=== PATIENT | female | born 1965 | race Caucasian/White ===

== ENCOUNTER → 2016-06-07 | Outpatient (CLI) | payer BC ==
--- NOTE | 2016-06-07 16:12 | MAM ---
EXAM DESCRIPTION: MAMMO BREAST DIAGNOSTIC UNILATERAL Images were reviewed with R2 computer-aided detection. CLINICAL HISTORY: Clustered microcalcifications. Left breast. Eight o'clock. COMPARISON: Screening evaluation 05/07/2016 and 2013 FINDINGS: True lateral view as well as spot compression magnification views are obtained. Small group of microcalcifications are appreciated, in retrospect visible in 2014 although better demonstrated on today's exam. Shown on today's examination is a 2nd small cluster with similar morphology at 11 o'clock. The patient has additional calcifications elsewhere in the breast and on the contralateral side. Glandular parenchyma has a benign appearance. IMPRESSION: Probably benign exam. Better demonstrated calcifications in the left breast that are compatible with probably benign change. BIRAD CATEGORY: 3 PROBABLY BENIGN RECOMMENDATION: FOLLOW-UP: Six-month followup mammography left breast to document stability. Findings and recommendations were communicated to the patient by the technologist. According to the [employer], yearly mammograms are recommended starting at age 40 and continuing as long as a woman is in good health. Any breast change noted on a breast self-exam should be reported promptly to the patient's healthcare provider. Breast MRI is recommended for women with an approximately 20-25% or greater lifetime risk of breast cancer, including women with a strong family history of breast or ovarian cancer and women who have been treated for Hodgkin's disease. Electronically signed by: Rashida Leavitt 06/07/2016 16:10
== END ==
LOC: MAMMO 15:10
DX: R92.8 Other abnormal and inconclusive findings on diagnostic imaging of breast (principal); R92.1 Mammographic calcification found on diagnostic imaging of breast

== ENCOUNTER → 2016-11-29 | Outpatient (CLI) | payer BC ==
--- NOTE | 2016-11-30 10:19 | MAM ---
EXAM DESCRIPTION: Diagnostic Mammo,Left CLINICAL HISTORY: 51 yearsFemale6 M/O FU COMPARISON: Digital diagnostic left breast examination 06/07/2016. TECHNIQUE: Full-field digital left breast CC and LM images. Magnification digital LM and CC images of the anterior breast and LM digital spot magnification anterior breast. CAD was utilized. FINDINGS: Breast parenchymal density pattern is: heterogeneously dense breasts, which may obscure small masses.. Again noted are two groups of microcalcifications in the anterior third of the left breast at approximately 730 to 800 clock position. There are slightly more calcifications in the more posterior group since the prior study and these calcifications are more fine pleomorphic and amorphous compared to the more anterior grouping which are more rounded. On comparison of the magnified LM and CC images, these groups are less than 2 cm apart. IMPRESSION: BI-RADS CATEGORY: 4A - LOW SUSPICION FOR MALIGNANCY. FOLLOW-UP: SURGICAL EVALUATION IS RECOMMENDED. The findings and the follow-up plan were discussed with the patient following the examination. Written communication explaining the findings and the follow-up plan will be mailed to the patient and referring health care provider. CRITICAL COMMUNICATION: The critical value was discussed directly by phone with Dr. Krissy Mahoney, at approximately 940 hours, on November 30, 2016. Electronically signed by: Gil Pemberton MD 11/30/2016 10:17 AM CDT Workstation: [id number]
== END | disposition home or self-care (01) ==
LOC: MAMMO 15:28
DX: R92.8 Other abnormal and inconclusive findings on diagnostic imaging of breast (principal)
CPT/HCPCS: 77065; G0206

== ENCOUNTER → 2017-06-03 | Outpatient (CLI) | payer BC ==
--- NOTE | 2017-06-03 12:16 | MAM ---
EXAM DESCRIPTION: 3D Diagnostic, Bilateral: Digital Mammography CLINICAL HISTORY: 51 yearsFemaleABNORMAL SCREENING benign biopsy left breast, November 2016. No complaints. Mother with breast and ovarian cancer. Premenopausal. No HRT. COMPARISON: 2-D diagnostic digital left breast mammography 11/29/2016 and 06/07/2016. 2-D digital screening bilateral study 05/07/2016.. No prior reports available. Reports from prior examinations also reviewed. Report from prior examination also reviewed. TECHNIQUE: Bilateral CC LM MLO projection full-field images, 3-D tomosynthesis digital mammographic technique. Also bilateral synthesized CC MLO LM full-field images. CAD not utilized. FINDINGS: The breast parenchymal density pattern is: Heterogeneously dense breast tissue, which may obscure small masses. No skin thickening or nipple retraction biopsy site marker is seen in the anterior third of the left breast at the 600 clock position. The 2 groups of microcalcifications seen prior to the biopsied and no longer present. Bilateral solitary microcalcifications. Bilateral axillary lymph nodes. No focal, stellate mass or density, focal asymmetry , and no suspicious microcalcifications bilaterally. IMPRESSION: BI-RADS CATEGORY: 2 - BENIGN FINDINGS. FOLLOW UP: Return to routine digital bilateral screening, one year interval from May 2017. Written communication explaining the IMPRESSION and follow-up, will be mailed to the patient and referring health care provider. According to the [employer], yearly mammograms are recommended starting at age 40 and continuing as long as a woman is in good health. Any breast change noted on a breast self-exam should be reported promptly to the patient's healthcare provider. Breast MRI is recommended for women with an approximately 20-25% or greater lifetime risk of breast cancer, including women with a strong family history of breast or ovarian cancer and women who have been treated for Hodgkin's disease. A negative mammographic report should not delay tissue diagnosis in patients with significant clinical history or physical findings. Extremely dense breast tissue limits the sensitivity of digital mammography. Electronically signed by: Gil Pemberton MD 06/03/2017 12:15 PM [facility]
== END | disposition home or self-care (01) ==
LOC: MAMMO 10:54
DX: R92.8 Other abnormal and inconclusive findings on diagnostic imaging of breast (principal)
CPT/HCPCS: 77066; G0279

== ENCOUNTER → 2019-05-21 | Outpatient (CLI) | payer BC, OTHER ==
--- NOTE | 2019-05-21 13:13 | US ---
EXAM DESCRIPTION: Pelvic,Non-OB: Ultrasound. CLINICAL HISTORY: 53 years Female POSTMENOPAUSAL BLEEDING. 2, para 2. No HRT. No pelvic surgery. COMPARISON: Bilateral screening mammography on this visit. TECHNIQUE: Transcutaneous scanning through the urine filled bladder. Endovaginal scanning. Schmitz-scale and Doppler modes. FINDINGS: Uterus 7.9 x 4.5 x 3.8 cm. 80.6 mL. Endometrium 4.8 mm.. Myometrium heterogeneous. Uterus not retroverted. 1.5 x 1.4 x 1.2 cm heterogeneous partially echogenic mass posterior. Heterogeneous hypoechoic mass near the fundus measuring 1.5 x 1.4 x 1.3 cm Cervix unremarkable.. Cul-de-sac: No fluid.. Right ovary 2.8 x 2.7 x 2.4 cm. 9.2 mL. Normal waveform and color Doppler vascularity. 2.4 cm circumscribed anechoic well-defined cyst. No adnexal mass or free fluid. Left ovary 2.0 x 1.9 x 1.1 cm. 2.1 mL. Normal waveform and color Doppler vascularity. No follicles or cysts. No adnexal mass or free fluid. IMPRESSION: 1. Normal position and size of uterus. No postmenopausal endometrial thickening or fluid. 2 heterogeneous masses measuring 1.5 cm are most likely fibroids. Cervix is unremarkable and there is no fluid in the cul-de-sac. 2. Small left ovary with normal echogenicity and vascularity. 2.4 cm simple left ovarian cyst. No follow-up imaging is recommended. Reference: Radiology 2009;256(3):943-54. Electronically signed by: Gil Pemberton MD 05/21/2019 1:12 PM [facility]
--- NOTE | 2019-06-01 14:27 | MAM ---
EXAM DESCRIPTION: 3D Screening BILATERAL : Digital Mammography. CLINICAL HISTORY: 53 years Female SCREENING . No complaints or personal history of breast cancer. Mother with breast cancer at age 40 and ovarian cancer at age 24. Menarche age 12. Childbirth age 25. Perimenopausal. Benign left breast biopsy. No HRT Lifetime risk of developing breast cancer (Tyrer-Cuzick model)(%): 22.0 COMPARISON: Bilateral diagnostic digital breast tomosynthesis May 2017. Diagnostic left breast mammography November 2016 and May 2016. 2-D digital screening bilateral mammography April 2016.. TECHNIQUE: Bilateral CC, and MLO projection full-field images, digital tomosynthesis mammographic technique. Bilateral digital 2-D full-field MLO images. CAD not available for tomosynthesis or 2-D images. Note: Delay in interpretation due to technical problems acquiring the images on the PACS. FINDINGS: The breast parenchymal density pattern is: Scattered areas of fibroglandular density. No skin thickening or nipple retraction. Bilateral benign type parenchymal microcalcifications. Bilateral axillary lymph nodes. Biopsy site marker 6:00 position middle third left breast. No new focal, stellate mass or density, focal asymmetry , and no suspicious microcalcifications bilaterally. Stable mammograms compared to prior study. Taking into account, differences in mammographic technique. IMPRESSION: Benign exam. BIRAD CATEGORY: 2 BENIGN FINDINGS. RECOMMENDATIONS: FOLLOW UP: Routine digital bilateral mammographic screening, one year interval from May 2019. Written communication explaining the IMPRESSION and follow-up, will be mailed to the patient and referring health care provider. According to the [employer], yearly mammograms are recommended starting at age 40 and continuing as long as a woman is in good health. Any breast change noted on a breast self-exam should be reported promptly to the patient's healthcare provider. Breast MRI is recommended for women with an approximately 20-25% or greater lifetime risk of breast cancer, including women with a strong family history of breast or ovarian cancer and women who have been treated for Hodgkin's disease. A negative mammographic report should not delay tissue diagnosis in patients with significant clinical history or physical findings. Extremely dense breast tissue limits the sensitivity of digital mammography. Electronically signed by: Gil Pemberton MD 06/01/2019 2:25 PM [employer]
== END ==
LOC: US 08:53
PROVIDERS: ATTEND Internal Medicine
DX: N95.0 Postmenopausal bleeding (principal); R19.09 Other intra-abdominal and pelvic swelling, mass and lump; N83.202 Unspecified ovarian cyst, left side